=== PATIENT | female | born 1995 | race Caucasian/White ===

== ENCOUNTER 2020-01-16 00:59 | Inpatient (IN) | payer MEDICAID ==
[~2020-01-16] VITALS: Ht 152.4 cm; Wt 65.8 kg
[2020-01-16] MEDS ORDERED: ONDANSETRON HCL 4MG/2ML INJ IV STA (01:39)
[2020-01-16] MEDS ORDERED: MORPHINE SULFATE 4 MG/ML CPJ (NOT FOR IM USE) IV STA (01:39)
[2020-01-16] MEDS ORDERED: SODIUM CHLORIDE 0.9% 1,000 ML IV ONE (01:45)
[2020-01-16 01:52] LABS: BASOPHILS % 0.3 % (0.0-2.0); EOSINOPHILS % 3.3 % (0.0-5.0); HEMATOCRIT. 38.5 % (36.0-48.0); HEMOGLOBIN. 12.8 g/dL (12.0-16.0); LYMPHOCYTES % 22.5 % (20.0-50.0); MEAN CORPUSCULAR HEMOGLOBIN 27.2 pg (28.0-32.0); MEAN PLATELET VOLUME 10.4 fl (7.4-10.4); MONOCYTES % 6.1 % (2.0-8.0); NEUTROPHILS % 67.8 % (40.0-76.0); PLATELET 269 x1000/uL (130-400); RED BLOOD CELL COUNT 4.69 mill/uL (4.2-5.4); RED CELL DISTRIBUTION WIDTH 14.4 % (11.6-14.6)
[2020-01-16 01:53] LABS: CHLORIDE 106 mEq/L (98-107)
[2020-01-16 02:23] LABS: CLARITY URINE CLOUDY (CLEAR); COLOR URINE ORANGE (YELLOW); KETONES URINE NEGATIVE (NEGATIVE); LEUKOCYTE ESTERASE URINE 2+ (NEGATIVE); NITRITE URINE NEGATIVE (NEGATIVE); OCCULT BLOOD URINE 3+ (NEGATIVE); PROTEIN URINE 1+ (NEGATIVE); SPECIFIC GRAVITY URINE 1.013 (1.005-1.030)
[2020-01-16] MEDS ORDERED: IOHEXOL-300 100 ML BOTTLE ONE (03:16)
[2020-01-16] MEDS ORDERED: MORPHINE SULFATE 4 MG/ML CPJ (NOT FOR IM USE) IV ONE (05:45)
[2020-01-16] MEDS ORDERED: METOCLOPRAMIDE HCL 10MG/2ML VIAL IV ONE (05:45)
[2020-01-16 11:01] VITALS: BP 115/73
[2020-01-16 12:00] VITALS: BP 119/72
[2020-01-16] MEDS ORDERED: DEXT 5%/0.45% NACL 1000ML 1,000 ML IV SCH (12:15)
[2020-01-16] MEDS: MORPHINE SULFATE 2 MG/ML CPJ (NOT FOR IM USE) IV PRN ×3 (12:53→21:52)
[2020-01-16] MEDS: PIPERACILLIN/TAZOBACTAM 3.375 G in DEXT 5% WATER 100 ML IV SCH ×2 (14:07→19:43)
[2020-01-16 16:00] VITALS: BP 120/81
[2020-01-16] MEDS: ONDANSETRON HCL 4MG/2ML INJ IV PRN (17:08)
[2020-01-16] MEDS ORDERED: DEXT 5%/0.45% NACL KCL 20MEQ/L 1,000 ML IV ONE (19:00)
[2020-01-16 20:00] VITALS: BP 117/69
[2020-01-16] MEDS ORDERED: POTASSIUM CHLORIDE INJ 40 MEQ in DEXT 5% WATER 500 ML IV SCH (20:00)
[2020-01-17] VITALS: BP_SYST 119; BP_SYST 128; BP_DIAS 78; BP_DIAS 86
[2020-01-17] MEDS: PIPERACILLIN/TAZOBACTAM 3.375 G in DEXT 5% WATER 100 ML IV SCH ×4 (02:31→20:39)
[2020-01-17 04:00] VITALS: BP 104/68
[2020-01-17 06:28] LABS: BASOPHILS % 0.2 % (0.0-2.0); EOSINOPHILS % 0.4 % (0.0-5.0); HEMATOCRIT. 35.6 % (36.0-48.0); HEMOGLOBIN. 11.7 g/dL (12.0-16.0); LYMPHOCYTES % 9.8 % (20.0-50.0); MEAN CORPUSCULAR HEMOGLOBIN 27.1 pg (28.0-32.0); MEAN CORPUSCULAR VOLUME 82.2 fL (81.0-99.0); MEAN PLATELET VOLUME 10.5 fl (7.4-10.4); MONOCYTES % 6.9 % (2.0-8.0); NEUTROPHILS % 82.7 % (40.0-76.0); PLATELET 213 x1000/uL (130-400); RED BLOOD CELL COUNT 4.33 mill/uL (4.2-5.4); RED CELL DISTRIBUTION WIDTH 14.7 % (11.6-14.6)
[2020-01-17 06:35] LABS: CHLORIDE 108 mEq/L (98-107)
[2020-01-17 06:53] LABS: HCG SCREEN NEGATIVE
[2020-01-17 06:54] LABS: AMYLASE 799 IU/L (25-115)
[2020-01-17 08:00] VITALS: BP 112/65
[2020-01-17] MEDS: PANTOPRAZOLE SODIUM 40 MG/VIAL IV SCH (09:15)
[2020-01-17] MEDS: MORPHINE SULFATE 2 MG/ML CPJ (NOT FOR IM USE) IV PRN ×2 (10:17→17:02)
[2020-01-17] MEDS: ONDANSETRON HCL 4MG/2ML INJ IV PRN (10:25)
[2020-01-17 11:08] LABS: UCG SCREEN NEGATIVE
[2020-01-17 12:00] VITALS: BP 101/57
[2020-01-17 16:00] VITALS: BP 101/54
[2020-01-17 20:00] VITALS: BP 107/62
[2020-01-18] VITALS: BP 110/69
[2020-01-18] MEDS: MORPHINE SULFATE 2 MG/ML CPJ (NOT FOR IM USE) IV PRN ×2 (00:17→08:09)
[2020-01-18] MEDS: PIPERACILLIN/TAZOBACTAM 3.375 G in DEXT 5% WATER 100 ML IV SCH ×4 (02:26→21:29)
[2020-01-18 04:00] VITALS: BP 109/65
[2020-01-18 07:35] LABS: BASOPHILS % 0.4 % (0.0-2.0); EOSINOPHILS % 1.8 % (0.0-5.0); HEMATOCRIT. 34.5 % (36.0-48.0); HEMOGLOBIN. 11.5 g/dL (12.0-16.0); LYMPHOCYTES % 11.9 % (20.0-50.0); MEAN CORPUSCULAR HEMOGLOBIN 27.7 pg (28.0-32.0); MEAN CORPUSCULAR VOLUME 83.1 fL (81.0-99.0); MEAN PLATELET VOLUME 10.6 fl (7.4-10.4); MONOCYTES % 7.8 % (2.0-8.0); NEUTROPHILS % 78.1 % (40.0-76.0); PLATELET 190 x1000/uL (130-400); RED BLOOD CELL COUNT 4.15 mill/uL (4.2-5.4); RED CELL DISTRIBUTION WIDTH 14.6 % (11.6-14.6)
[2020-01-18] MEDS: PANTOPRAZOLE SODIUM 40 MG/VIAL IV SCH (07:55)
[2020-01-18 08:00] VITALS: BP 107/58
[2020-01-18 08:04] LABS: CHLORIDE 105 mEq/L (98-107)
[2020-01-18 08:11] LABS: AMYLASE 225 IU/L (25-115)
[2020-01-18] MEDS ORDERED: ACETAMINOPHEN 325MG TABLET PO PRN (09:45)
[2020-01-18 12:00] VITALS: BP 108/59
[2020-01-18] MEDS ORDERED: POTASSIUM CHLORIDE 20MEQ TABLET SR PO NR (14:00)
[2020-01-18] MEDS ORDERED: BUPIVACAINE HCL/PF 0.5% (5MG/ML) 10ML ONE (15:54)
[2020-01-18] MEDS ORDERED: LIDOCAINE HCL 1% 20ML VIAL (Pyxis) INJ ONE (15:54)
[2020-01-18] MEDS ORDERED: SKIN ADHESIVE 0.7 GM EA TOP ONE (15:54)
[2020-01-18] MEDS ORDERED: BACITRACIN 50,000 UNITS/VIAL ONE (15:55)
[2020-01-18 16:00] VITALS: BP 122/76
[2020-01-18 16:05] LABS: INR 1.1; PARTIAL THROMBOPLASTIN TIME 34.1 sec (23.4-31.0); PROTHROMBIN TIME 11.5 sec (9.6-11.0)
[2020-01-18] MEDS ORDERED: FENTANYL CITRATE/PF 50MCG/ML 2ML VIAL ONE (17:50)
[2020-01-18] MEDS ORDERED: ROCURONIUM BROMIDE 10MG/ML VIAL 5ML IV ONE (17:50)
[2020-01-18] MEDS ORDERED: PROPOFOL 200MG/20ML VIAL IV ONE (17:50)
[2020-01-18] MEDS ORDERED: NEOSTIGMINE METHYLSULFATE 1MG/ML 10 ML VIAL ONE (17:50)
[2020-01-18] MEDS ORDERED: MIDAZOLAM HCL 2 MG/2 ML VIAL ONE (17:50)
[2020-01-18] MEDS ORDERED: GLYCOPYRROLATE 0.2 MG/ML 2ML VIAL ONE (17:50)
[2020-01-18] MEDS ORDERED: LIDOCAINE HCL/PF 1% 10 MG/ML 5ML VIAL ONE (17:51)
[2020-01-18] MEDS ORDERED: CEFAZOLIN SODIUM 1000MG/VIAL ONE (17:51)
[2020-01-18] MEDS ORDERED: SODIUM CHLORIDE 0.9% 10ML VIAL ONE (17:51)
[2020-01-18] MEDS ORDERED: MORPHINE SULFATE 4 MG/ML CPJ (NOT FOR IM USE) IV PRN (19:00)
[2020-01-18] MEDS ORDERED: DIPHENHYDRAMINE 50MG/ML VIAL IV PRN (20:00)
[2020-01-18] MEDS ORDERED: ONDANSETRON HCL 4MG/2ML INJ IV PRN (20:00)
[2020-01-18] MEDS ORDERED: METOCLOPRAMIDE HCL 10MG/2ML VIAL IV SCH (20:00)
[2020-01-18] MEDS ORDERED: MEPERIDINE HCL/PF 25MG/ML CPJ IV PRN (20:00)
[2020-01-18] MEDS ORDERED: KETOROLAC 30MG/ML VIAL IV SCH (20:00)
[2020-01-18] MEDS: HYDROMORPHONE HCL/PF 2MG/ML CPJ IV PRN ×2 (20:08→20:42)
[2020-01-18 21:30] VITALS: BP 100/60
[2020-01-19] VITALS: BP 97/54
[2020-01-19] MEDS: PIPERACILLIN/TAZOBACTAM 3.375 G in DEXT 5% WATER 100 ML IV SCH ×3 (03:29→13:41)
[2020-01-19 04:00] VITALS: BP 104/54
[2020-01-19 06:52] LABS: HEMOGLOBIN. 10.4 g/dL (12.0-16.0); MEAN CORPUSCULAR HEMOGLOBIN 27.7 pg (28.0-32.0); MEAN CORPUSCULAR VOLUME 82.6 fL (81.0-99.0); MEAN PLATELET VOLUME 10.9 fl (7.4-10.4); PLATELET 164 x1000/uL (130-400); RED BLOOD CELL COUNT 3.75 mill/uL (4.2-5.4); RED CELL DISTRIBUTION WIDTH 13.8 % (11.6-14.6)
[2020-01-19 07:06] LABS: CHLORIDE 106 mEq/L (98-107)
[2020-01-19 08:00] VITALS: BP 101/62
[2020-01-19] MEDS: PANTOPRAZOLE SODIUM 40 MG/VIAL IV SCH (10:20)
[2020-01-19 12:00] VITALS: BP 124/87
[2020-01-19] MEDS ORDERED: HYDR-4001 MT (12:43)
[2020-01-19 14:03] VITALS: BP 124/87
[2020-01-19 16:29] LABS: PLATELET ESTIMATE NORMAL
[2020-01-20] MEDS ORDERED: PANTOPRAZOLE 40MG DR TABLET PO SCH (07:10)
== END 2020-01-19 15:10 | disposition home or self-care (01) | DRG 710 ==
LOC: ER 00:59 → 8WST 05:14 → ENRESERV 08:11
PROVIDERS: ADMIT Internal Medicine; ATTEND Internal Medicine
PROC: 0FT44ZZ Resection of Gallbladder, Percutaneous Endoscopic Approach (ICD-10-PCS; principal; 2020-01-18)
DX: A41.9 Sepsis, unspecified organism (principal); K85.10 Biliary acute pancreatitis without necrosis or infection; E87.6 Hypokalemia; R74.01 Elevation of levels of liver transaminase levels; N39.0 Urinary tract infection, site not specified; M54.9 Dorsalgia, unspecified; Z20.828 Contact with and (suspected) exposure to other viral communicable diseases
CPT/HCPCS: 36415; 74177; 76705; 80048; 80053; 81003; 81025; 82150; 84703; 85025; 86850; 86900; 87426; 88304; 93005; 99285; C9113; J0690; J1170; J1885; J2250; J2270; J2405; J2543; J2704; J2710; J2765; J3010; J3480; J3490; J7030; J7060; Q9967